=== PATIENT | female | born 1955 | race Caucasian/White ===

== ENCOUNTER 2023-08-02 10:45 | Emergency (ER) | payer MEDICARE, OTHER ==
[~2023-08-02] VITALS: Ht 167.6 cm; Wt 68.0 kg
[2023-08-02 11:06] VITALS: BP 132/93
[2023-08-02] MEDS ORDERED: Percocet 5-3251 EACH PO (11:27)
== END 2023-08-02 11:43 | disposition home or self-care (01) ==
LOC: ER 10:45
DX: K04.7 Periapical abscess without sinus (principal)
CPT/HCPCS: 99283